=== PATIENT | female | born 1970 | race Caucasian/White ===

== ENCOUNTER 2021-01-06 07:47 | Day surgery (SDC) | payer OTHER ==
[~2021-01-06] VITALS: Ht 162.6 cm; Wt 55.8 kg
[2021-01-06] MEDS ORDERED: PERCOCET 5-3251 EACH PO (14:06)
[2021-01-06] MEDS ORDERED: RECTICARE30 GM TOP (14:06)
== END 2021-01-06 20:35 | disposition home or self-care (01) ==
LOC: SEC-K 07:47 → ER 07:47 → CIR.AMB 07:47 → EDSTATUS 11:00 → SEC-K 14:43 → O/R 14:43 → CIR.AMB 20:35 → O/R 01-07 20:35
PROVIDERS: ATTEND Surgery
DX: K64.4 Residual hemorrhoidal skin tags (principal); K64.8 Other hemorrhoids; Z20.822 Contact with and (suspected) exposure to COVID-19